=== PATIENT | female | born 1965 | race Caucasian/White ===

== ENCOUNTER 2022-03-31 13:35 | Outpatient (REF) | payer BC, SELFPAY ==
[2022-03-31 15:28] LABS: Alanine Aminotransferase 31 U/L (0-31); Albumin Level 4.2 g/dL (3.5-5.0); Alkaline Phosphatase 93 U/L (39-117); Anion Gap 17 (12-20); Aspartate Amino Transferase 25 U/L (5-31); Bilirubin Total 0.3 mg/dL (0.0-1.0); Blood Urea Nitrogen 19 mg/dL (9-16); Calcium 9.4 mg/dL (8.4-10.2); Carbon Dioxide 22 mmol/L (22-29); Chloride 107 mmol/L (96-108); Estimated Glomerular Filt Rate > 60; Glucose Random 86 mg/dL (60-115); Lipase 41 U/L (8-78); Potassium 3.9 mmol/L (3.3-5.1); Sodium 142 mmol/L (135-145); Total Protein 6.9 g/dL (6.5-8.0)
[2022-03-31 15:29] LABS: TSH reflex Free T4 0.46 uIU/mL (0.32-4.0)
[2022-04-05 13:55] LABS: Transglutaminase Ab IgG <1.0 U/mL; Transglutaminase IgA <1.0 U/mL
== END 2022-03-31 13:36 | disposition home or self-care (01) ==
LOC: HO.LAB 13:35
PROVIDERS: PCP Internal Medicine; Visit Provider Nurse Practitioner Family
DX: R10.9 Unspecified abdominal pain (principal); K59.00 Constipation, unspecified; K21.9 Gastro-esophageal reflux disease without esophagitis
CPT/HCPCS: 36415; 80053; 83690; 84443; 86364

== ENCOUNTER 2023-04-16 13:45 | Outpatient (AMB) | payer BC, SELFPAY ==
--- NOTE | 2023-04-16 14:05 | A.OFFPC_ITS ---
Vital Signs 04/16/23 14:09 Height 5 ft 3 in Weight 137 lb BMI 24.3 BP 128/66 Blood Pressure Location Rt brachial Position Sitting Pulse 79 Pulse Source Pulse Oximeter Pulse Oximetry (%) 98 Oxygen Delivery Method Room Air Intake Visit Reasons: Stomach Pain/Diarrhea Intake Note: Pt is here today for a sick visit, Pt c/o abdominal pain watery stool. Pt states that it has been going on for over 2 weeks. Allergies No Known Allergies Allergy (Verified 04/16/23 14:11) Medication List - Last Reconciled 04/16/23 by Elva Molina MD No Known Home Meds Tobacco use date assessed: 04/16/23 Dental Screening Dental Screen Date: 04/16/23 Did you have a dental visit in the last 12 months?: Yes Did you have a dental problem in the last 6 months where you did not have access to dental care?: No Was dental information given to patient?: Patient has dentist HPI Stomach Pain/Diarrhea HPI Details Pt c/o epigastric abd pain for 2 weeks, constipation on and off, not related to diet. Patient denies nausea vomiting hematochezia melena. she has been drinking 4-6 beers a day, and getting shakes when trying to cut down. Patient is looking for the program to help her quit drinking. [facility] Medical History (Updated 04/16/23 @ 14:25 by Elva Molina MD) Hx of mammogram Normal pelvic exam Varicose veins of both lower extremities Chronic pain of left lower extremity Anxiety Annual physical exam Varicosities of leg Bravo's neuroma of right foot H/O ETOH abuse Surgical History (Updated 03/31/22 @ 13:03 by Elsa Milner CCM) H/O foot surgery H/O colonoscopy Family History (Updated 04/16/23 @ 14:13 by Genoveva Dinero [facility]) Mother Substance use disorder Father No problems noted. Maternal Aunt Cancer of uterus Social History Housing: House Alcohol intake: current Alcohol intake frequency: 0-2 drinks per day Patient Tobacco Use Status: Current everyday Tobacco user Tobacco use type: Cigarette Cigarettes Per Day: 7 e-Cigarette/Vaping Use: Never Used Current occupational status: employed Cognitive needs: No Hearing needs: No Vision needs: No Questionnaire AUDIT C Alcohol Use Questionnaire (AUDIT-C) 1. How often do you have a drink containing alcohol?: 4 or more times a week 2. How many drinks containing alcohol do you have on a typical day when you are drinking?: 7 to 9 3. How often do you have six or more drinks on one occasion?: Daily or almost daily Total Score: 11 Review of Systems Const All systems reviewed & are unremarkable except as noted in HPI and below Reports no additional complaints Eyes Reports no additional complaints ENT Reports no additional complaints Card Reports no additional complaints Resp Reports no additional complaints GI Reports no additional complaints Reports no additional complaints Physical exam (Primary Care) Vital Signs: Last Vital Signs Pulse 79 04/16/23 14:09 BP 128/66 04/16/23 14:09 Pulse Ox 98 04/16/23 14:09 Oxygen Delivery Method Room Air 04/16/23 14:09 BMI result Body Mass Index 24.3 Tobacco/Smoking Status: Tobacco use Status Tobacco use date assessed 04/16/23 04/16/23 14:13 Patient Tobacco Use Status Current everyday Tobacco 04/16/23 14:05 Tobacco use type Cigarette 04/16/23 14:13 e-Cigarette/Vaping Use Never Used 04/16/23 14:05 Const General: no acute distress Resp Effort & Inspection: normal respiratory effort Auscultation: clear to auscultation bilaterally Cardio Rhythm: regular rhythm Heart sounds: S1 normal heart sound present and S2 normal heart sound present GI Other: Epigastric tenderness . no rebound or guarding Inspection: Yes normal to inspection Palpation (GI): Soft to palpation Assessment and Plan Assessment & Plan (1) RUQ abdominal pain: Code(s): R10.11 - Right upper quadrant pain Plan: check labs, abd US to r/o cholecystitis, try Omeprazole. If symptoms persist refer to GI (2) H/O ETOH abuse: Code(s): F10.11 - Alcohol abuse, in remission Plan: QUITTING ALCOHOL DISCUSSED WITH THE PATIENT. She will check with her insurance company for any outpatient detox services Orders: Orders Complete Blood Count Auto Diff Today F10.11 - Alcohol abuse, in remission, R10.11 - Right upper quadrant pain Lipase Today F10.11 - Alcohol abuse, in remission, R10.11 - Right upper quadrant pain US abdomen complete Today F10.11 - Alcohol abuse, in remission, R10.11 - Right upper quadrant pain Comprehensive Met. Panel Today F10.11 - Alcohol abuse, in remission, R10.11 - Right upper quadrant pain H pylori Ag Stool Today F10.11 - Alcohol abuse, in remission, R10.11 - Right upper quadrant pain Medications: New omeprazole 20 mg PO DAILY 90 caps 0RF omeprazole 20 mg PO DAILY 90 caps 0RF Coding Level of Care Code Est Pt Level 3 (39045) Diagnoses RUQ abdominal pain R10.11 H/O ETOH abuse F10.11
[2023-04-16 14:09] VITALS: BP 128/66; PULSE 79; O2SAT 98; BMI 24.3
== END 2023-04-16 14:35 | disposition home or self-care (01) ==
PROVIDERS: PCP Internal Medicine; Visit Provider Internal Medicine
DX: R10.11 Right upper quadrant pain (principal); F10.11 Alcohol abuse, in remission
CPT/HCPCS: 99213

== ENCOUNTER 2023-04-16 14:28 | Outpatient (REF) | payer BC, SELFPAY ==
[2023-04-16 16:06] LABS: MANUAL DIFF FLAG NO
[2023-04-16 16:24] LABS: Basophils Absolute Auto 0.1 X10*3/uL (0.0-0.2); Basophils Percent Auto 0.9 % (0-2); Eosinophils Absolute Auto 0.1 X10*3/uL (0.0-0.4); Eosinophils Percent Auto 0.5 % (0-4); Hemoglobin 14.6 g/dl (12.0-16.0); Imm Gran Abs Auto 0.02 X10*3/uL (0.00-0.03); Imm Gran Pct Auto 0.2 % (0.0-0.4); Lymphocytes Absolute Auto 2.4 X10*3/uL (1.2-4.9); Lymphocytes Percent Auto 21.5 % (20-40); Mean Corpuscular Hemoglobin 33.2 pg (27.0-33.0); Mean Corpuscular Volume 97.7 fL (80.0-98.0); Mean Platelet Volume 9.5 fL (9.4-12.3); Monocytes Absolute Auto 0.9 X10*3/uL (0.1-1.2); Monocytes Percent Auto 7.9 % (2-11); Neutrophils Absolute Auto 7.7 x10*3/uL (2.0-8.3); Platelet Count 312 X10*3/uL (160-400); Red Cell Distribution Width 12.3 % (11.0-16.0); White Blood Count 11.2 X10*3/uL (4.8-10.8)
[2023-04-16 16:36] LABS: Alanine Aminotransferase 35 U/L (0-31); Albumin Level 4.2 g/dL (3.5-5.0); Alkaline Phosphatase 86 U/L (39-117); Anion Gap 15 (12-20); Aspartate Amino Transferase 33 U/L (5-31); Bilirubin Total 0.7 mg/dL (0.0-1.0); Blood Urea Nitrogen 13 mg/dL (9-16); Calcium 9.5 mg/dL (8.4-10.2); Carbon Dioxide 24 mmol/L (22-29); Chloride 103 mmol/L (96-108); Estimated Glomerular Filt Rate > 60; Glucose Random 89 mg/dL (60-115); Lipase 19 U/L (8-78); Potassium 3.8 mmol/L (3.3-5.1); Sodium 138 mmol/L (135-145); Total Protein 7.3 g/dL (6.5-8.0)
== END 2023-04-16 14:29 | disposition home or self-care (01) ==
LOC: HO.HMGCLDS 14:28
PROVIDERS: PCP Internal Medicine; Visit Provider Internal Medicine
DX: R10.11 Right upper quadrant pain (principal); F10.11 Alcohol abuse, in remission
CPT/HCPCS: 36415; 80053; 83690; 85025

== ENCOUNTER 2023-04-19 07:35 | Outpatient (REF) | payer BC, SELFPAY | END 2023-04-19 07:36 | disposition home or self-care (01) | LOC: HO.HMGCLNP 07:35 | PROVIDERS: PCP Internal Medicine; Visit Provider Internal Medicine | DX: R10.11 Right upper quadrant pain (principal); F10.11 Alcohol abuse, in remission | CPT/HCPCS: 87338 ==

== ENCOUNTER 2023-04-19 09:05 | Outpatient (REF) | payer BC, SELFPAY ==
--- NOTE | ~2023-04-19 | US_ITS ---
EXAMINATION: US ABDOMEN LIMITED CLINICAL INFORMATION: Right upper quadrant pain. COMPARISON: None available. TECHNIQUE: Real-time imaging of the right upper quadrant abdominal viscera. FINDINGS: PANCREAS: Normal head and body, the tail is obscured by bowel gas. LIVER: The liver is normal in size. The liver contour is normal. There is diffuse increased liver parenchymal echogenicity, consistent with hepatic steatosis. No focal hepatic lesion. There is no intrahepatic biliary duct dilatation seen. GALLBLADDER: Normal. The gallbladder is physiologically distended without evidence of stones, sludge, polyps, wall thickening or pericholecystic fluid. COMMON BILE DUCT: Normal in caliber measuring 0.2 cm in diameter. RIGHT KIDNEY: Normal. No hydronephrosis. No renal calculi. 0.5 x 0.5 x 0.5 cm echogenic focus in the cortex of the mid kidney may represent an angiomyolipoma. The kidney measures 10.0 cm in maximum dimension. FREE FLUID: None. US/US abdomen limited IMPRESSION: 1. Hepatic steatosis. 2. 0.5 cm echogenic focus in the cortex of the mid right kidney may represent an angiomyolipoma. Follow-up Limited abdominal ultrasound could be performed to confirm stability of this finding.
== END 2023-04-19 09:06 | disposition home or self-care (01) ==
LOC: HO.HMGCX 09:05
PROVIDERS: PCP Internal Medicine; Visit Provider Internal Medicine
DX: R10.11 Right upper quadrant pain (principal); F10.11 Alcohol abuse, in remission
CPT/HCPCS: 76705

== ENCOUNTER 2023-10-01 08:47 | Outpatient (AMB) | payer BC, SELFPAY ==
[2023-10-01 09:03] VITALS: BP 120/62; PULSE 83; O2SAT 96; BMI 23.0
--- NOTE | 2023-10-01 09:03 | MHC.PC.OV ---
Vital Signs 10/01/23 09:03 Height 5 ft 3 in Weight 130 lb BMI 23.0 BP 120/62 Blood Pressure Location Rt brachial Position Sitting Pulse 83 Pulse Source Pulse Oximeter Pulse Oximetry (%) 96 Oxygen Delivery Method Room Air Intake Visit Reasons: Medication review Intake Note: Pt is here today for a follow up visit. Allergies No Known Allergies Allergy (Verified 10/01/23 09:08) Medication List - Last Reconciled 10/01/23 by Elva Molina MD naltrexone 50 mg PO DAILY Tobacco use date assessed: 10/01/23 Dental Screening Dental Screen Date: 10/01/23 Did you have a dental visit in the last 12 months?: Yes Did you have a dental problem in the last 6 months where you did not have access to dental care?: No Was dental information given to patient?: Patient has dentist HPI Medication review HPI Details Pt presents for f/u ETOH dependency. She was in an inpatient detox for 28 days and has been sober for 48 days. She was prescribed Naltrexone. Pt has been in [facility] through [facility] attending meeting weekly [facility] Medical History Hx of mammogram Normal pelvic exam Varicose veins of both lower extremities Chronic pain of left lower extremity Anxiety Annual physical exam Varicosities of leg Bravo's neuroma of right foot H/O ETOH abuse Surgical History H/O foot surgery H/O colonoscopy Family History Mother Substance use disorder Father No problems noted. Maternal Aunt Cancer of uterus Social History Housing: House Alcohol intake: current Alcohol intake frequency: 0-2 drinks per day Patient Tobacco Use Status: Current everyday Tobacco user Tobacco use type: Cigarette Cigarettes Per Day: 7 e-Cigarette/Vaping Use: Never Used Current occupational status: employed Cognitive needs: No Hearing needs: No Vision needs: No Questionnaire PHQ-9 Over the last 2 weeks, how often have you been bothered by any of the following problems? 1. Little interest or pleasure in doing things: not at all 2. Feeling down, depressed, or hopeless: not at all 3. Trouble falling or staying asleep, or sleeping too much: several days 4. Feeling tired or having little energy: not at all 5. Poor appetite or overeating: not at all 6. Feeling bad about yourself - or that you are a failure or have let yourself or your family down: not at all 7. Trouble concentrating on things, such as reading the newspaper or watching television: not at all 8. Moving or speaking so slowly that other people could have noticed. Or the opposite - being so fidgety or restless that you have been moving around a lot more than usual: not at all 9. Thoughts that you would be better off or of hurting yourself in some way: not at all Total score: 1 Depression Screening Interpretation: Negative Depression Screening Done: Yes Source: Developed by Drs. Shon Gill, Maggy Fair, Tree Parker and colleagues, with an educational africa from [employer]. Thrive Questionnaire Date Thrive assessed: 10/01/23 I am a: Patient What is your living situation today?: I have a steady place to live Within the past 12 months, did the food you bought not last and you didn't have the money to get more?: Never true Within the past 12 months, did you worry whether your food would run out before you got money to buy more?: Never true Do you have trouble paying for medicines?: No Do you have trouble getting transportation to medical appointments?: No Do you have trouble paying your heating and electricity bill?: No Do you have trouble taking care of your child, family member or friend?: No Do you have trouble with day-to-day activities such as bathing, preparing meals, shopping, managing finances, etc.?: No Are you currently unemployed and looking for a job?: No Are you interested in more education?: No Please select the resources that you would like help with: None Currently or been in a relationship where the following occur: no concerns reported THRIVE Score: 0 AUDIT C Alcohol Use Questionnaire (AUDIT-C) 1. How often do you have a drink containing alcohol?: Never 3. How often do you have six or more drinks on one occasion?: Never Total Score: 0 DOTTIE-7 AMB Questionnaire DOTTIE-7 Date DOTTIE - 7 assessed: 10/01/23 Feeling nervous, anxious, or on edge: 0 = Not at all Not being able to stop or control worryin = Not at all Worrying too much about different things: 0 = Not at all Trouble relaxin = Not at all Being so restless that it is hard to sit still: 0 = Not at all Becoming easily annoyed or irritable: 0 = Not at all Feeling afraid as if something awful might happen: 0 = Not at all Total DOTTIE-7 score (0-4 normal; 5-9 mild; 10-14 moderate; 15-21 severe): 0 Source: Developed by Drs. Shon Gill, Maggy Fair, Tree Parker and colleagues, with an educational africa from [employer]. Review of Systems Const All systems reviewed & are unremarkable except as noted in HPI and below Reports no additional complaints Eyes Reports no additional complaints ENT Reports no additional complaints Card Reports no additional complaints Resp Reports no additional complaints GI Reports no additional complaints Reports no additional complaints Physical exam (Primary Care) Vital Signs: Last Vital Signs Pulse 83 10/01/23 09:03 BP 120/62 10/01/23 09:03 Pulse Ox 96 10/01/23 09:03 Oxygen Delivery Method Room Air 10/01/23 09:03 BMI result Body Mass Index 23.0 Tobacco/Smoking Status: Tobacco use Status Tobacco use date assessed 10/01/23 10/01/23 09:12 Patient Tobacco Use Status Current everyday Tobacco 10/01/23 09:03 Tobacco use type Cigarette 10/01/23 09:03 e-Cigarette/Vaping Use Never Used 10/01/23 09:03 PHQ-9: PHQ-9 Score PHQ-9: Total score 1 10/01/23 09:50 Depression Screening Interpretation: Negative Thrive Assessment: Date of Thrive Assessment Date Thrive assessed 10/01/23 10/01/23 09:50 Currently or been in a relationship where the following occur: no concerns reported Const General: no acute distress HENMT Head: Yes normal to inspection Ears: hearing grossly normal bilaterally Face and sinus: Yes normal facial exam Mouth: Normal oral and palatal mucosa present Throat: Yes posterior oropharynx normal Eyes General: appearance normal, both eyes and all related structures Neck Neck: Yes no lymphadenopathy and Yes supple Resp Effort & Inspection: normal respiratory effort Auscultation: clear to auscultation bilaterally Cardio Rhythm: regular rhythm Heart sounds: S1 normal heart sound present and S2 normal heart sound present GI Inspection: Yes normal to inspection Palpation (GI): Soft to palpation Percussion: Yes normal to percussion Auscultation: normal bowel sounds Assessment and Plan Assessment & Plan (1) Annual physical exam: Code(s): Z00.00 - Encounter for general adult medical examination without abnormal findings Plan: pt will return for PE (2) H/O ETOH abuse: Code(s): F10.11 - Alcohol abuse, in remission Plan: cont current f/u Orders: Orders Complete Blood Count Auto Diff Today Z00.00 - Encounter for general adult medical examination without abnormal findings UA w Microscopic Today Z00.00 - Encounter for general adult medical examination without abnormal findings Comprehensive [place]. Panel Fast Today Z00.00 - Encounter for general adult medical examination without abnormal findings Lipid Panel Today Z00.00 - Encounter for general adult medical examination without abnormal findings TSH reflex Free T4 Today Z00.00 - Encounter for general adult medical examination without abnormal findings Vitamin D 25-OH Total Today Z00.00 - Encounter for general adult medical examination without abnormal findings Coding Level of Care Code Est Pt Level 3 (85458) Diagnoses Annual physical exam Z00.00 H/O ETOH abuse F10.11
== END 2023-10-01 12:09 | disposition home or self-care (01) ==
PROVIDERS: PCP Internal Medicine; Visit Provider Internal Medicine
DX: F10.11 Alcohol abuse, in remission (principal)
CPT/HCPCS: 99213

== ENCOUNTER 2023-11-02 11:12 | Outpatient (AMB) | payer BC, SELFPAY ==
--- NOTE | 2023-11-02 11:20 | A.OFFPC_ITS ---
Vital Signs 11/02/23 11:21 Height 5 ft 3 in Weight 135 lb BMI 23.9 BP 114/60 Blood Pressure Location Lt brachial Position Sitting Pulse 83 Pulse Source Pulse Oximeter Pulse Oximetry (%) 98 Oxygen Delivery Method Room Air Intake Visit Reasons: Visit Intake Note: Pt is here today for a follow up visit. Allergies No Known Allergies Allergy (Verified 11/02/23 11:24) Medication List - Last Reconciled 11/02/23 by Elva Molina MD naltrexone 50 mg PO DAILY Tobacco use date assessed: 10/01/23 Dental Screening Dental Screen Date: 10/01/23 [facility] Medical History (Updated 11/02/23 @ 12:24 by Elva Molina MD) Hx of mammogram Normal pelvic exam Varicose veins of both lower extremities Chronic pain of left lower extremity Anxiety Annual physical exam Varicosities of leg Bravo's neuroma of right foot H/O ETOH abuse Surgical History H/O foot surgery H/O colonoscopy Family History Mother Substance use disorder Father No problems noted. Maternal Aunt Cancer of uterus Social History Housing: House Alcohol intake: current Alcohol intake frequency: 0-2 drinks per day Patient Tobacco Use Status: Current everyday Tobacco user Tobacco use type: Cigarette Cigarettes Per Day: 7 e-Cigarette/Vaping Use: Never Used service: No Current occupational status: employed Cognitive needs: No Hearing needs: No Vision needs: No Questionnaire Thrive Questionnaire Date Thrive assessed: 10/01/23 DOTTIE-7 AMB Questionnaire DOTTIE-7 Date DOTTIE - 7 assessed: 10/01/23 Source: Developed by Drs. Shon Gill, Maggy Fair, Tree Parker and colleagues, with an educational africa from [employer]. Review of Systems Const All systems reviewed & are unremarkable except as noted in HPI and below Reports no additional complaints Eyes Reports no additional complaints ENT Reports no additional complaints Card Reports no additional complaints Resp Reports no additional complaints GI Reports no additional complaints Reports no additional complaints Physical exam (Primary Care) Vital Signs: Last Vital Signs Pulse 83 11/02/23 11:21 BP 114/60 11/02/23 11:21 Pulse Ox 98 11/02/23 11:21 Oxygen Delivery Method Room Air 11/02/23 11:21 BMI result Body Mass Index 23.9 Tobacco/Smoking Status: Tobacco use Status Tobacco use date assessed 10/01/23 11/02/23 11:24 Patient Tobacco Use Status Current everyday Tobacco 11/02/23 11:24 Tobacco use type Cigarette 11/02/23 11:24 e-Cigarette/Vaping Use Never Used 11/02/23 11:24 Thrive Assessment: Date of Thrive Assessment Date Thrive assessed 10/01/23 11/02/23 11:24 Const General: no acute distress HENMT Head: Yes normal to inspection Ears: hearing grossly normal bilaterally Face and sinus: Yes normal facial exam Mouth: Normal oral and palatal mucosa present Eyes General: appearance normal, both eyes and all related structures Neck Neck: Yes no lymphadenopathy and Yes supple Resp Effort & Inspection: normal respiratory effort Auscultation: clear to auscultation bilaterally Cardio Rhythm: regular rhythm Heart sounds: S1 normal heart sound present and S2 normal heart sound present GI Inspection: Yes normal to inspection Palpation (GI): Soft to palpation Percussion: Yes normal to percussion Auscultation: normal bowel sounds External Female Exam: normal external appearance Speculum Exam - Vagina: normal appearance of the vagina Speculum Exam - Cervix: normal appearance of the cervix Bimanual exam- vagina & uterus: normal bimanual exam Assessment and Plan Assessment & Plan (1) Annual physical exam: Code(s): Z00.00 - Encounter for general adult medical examination without abnormal findings Plan: Well-balanced diet regular exercise discussed with the patient Pap smear was done today. Patient is up-to-date with mammogram and Cologuard was ordered she declined colonoscopy. Orders: Orders Pap Smear Today Z00.00 - Encounter for general adult medical examination without abnormal findings Referrals Cologuard Test Z12.11 - Encounter for screening for malignant neoplasm of colon, Z12.12 - Encounter for screening for malignant neoplasm of rectum Coding Level of Care Code Est Pt Prev Care 40-64y(80411) Diagnoses Annual physical exam Z00.00
[2023-11-02 11:21] VITALS: BP 114/60; PULSE 83; O2SAT 98; BMI 23.9
== END 2023-11-02 12:26 | disposition home or self-care (01) ==
PROVIDERS: PCP Internal Medicine; Visit Provider Internal Medicine
DX: Z00.00 Encounter for general adult medical examination without abnormal findings (principal)
CPT/HCPCS: 99396

== ENCOUNTER 2023-11-02 12:32 | Outpatient (REF) | payer BC, SELFPAY ==
[2023-11-08 03:37] LABS: HPV mRNA E6/E7 Not Detected (Not Detected)
== END 2023-11-02 12:33 | disposition home or self-care (01) ==
LOC: HO.LNP 12:32
PROVIDERS: Visit Provider Internal Medicine
DX: Z00.00 Encounter for general adult medical examination without abnormal findings (principal)
CPT/HCPCS: 87624; 88142

== ENCOUNTER 2023-12-28 13:10 | Outpatient (REF) | payer BC, SELFPAY ==
--- NOTE | ~2023-12-28 | US_ITS ---
EXAMINATION: US PELVIS CLINICAL INFORMATION: Endometrial hyperplasia; postmenopausal patient. COMPARISON: None available. TECHNIQUE: Ultrasound of the pelvis is performed using both transabdominal and transvaginal transducers along with Doppler. Transvaginal imaging is performed due to inadequate visualization transabdominally. FINDINGS: The uterus is of normal size and echogenicity, measuring 4.2 x 2.4 x 2.3 cm. The uterus is anteverted and anteflexed. A regular homogeneous endometrium is identified measuring 0.6 cm.): (3) within the endometrial canal The right ovary is normal in size and echotexture, measuring 1.9 x 0.8 x 1.6 cm for a volume of 1.3 mL. The left ovary is nonvisualized. There is no pelvic free fluid. No adnexal mass is seen. US/US pelvic and transvaginal IMPRESSION: 1. There is a small amount of nonspecific free fluid within the endometrial canal. 2. The left ovary is not visualized.
== END 2023-12-28 13:11 | disposition home or self-care (01) ==
LOC: HO.HMGCX 13:10
PROVIDERS: PCP Internal Medicine; Visit Provider Internal Medicine
DX: N85.00 Endometrial hyperplasia, unspecified (principal)
CPT/HCPCS: 76830; 76856

== ENCOUNTER 2024-11-21 12:57 | Outpatient (AMB) | payer BC, SELFPAY ==
--- OUTSIDE RECORDS SUMMARY | 2024-11-21 12:59 | XMS_ITS | Clinical Summary ---
Author Organization [facility] Address [address] [place] [address] Care Team Providers Care Armed Custom Protection Officer Name Role Phone Unavailable Primary Care Provider Unavailabl e Social History Tobacco Use Types Packs/Day Years Used Date Smoking Tobacco: Never Assessed Comments Unknown Sex and Gender Information Value Date Recorded Sex Assigned at Not on file Legal Sex Female 1:46 AM EST Gender Identity Not on file Sexual Orientation Not on file Plan of Treatment Health Maintenance Due Date Last Done Comments DTaP,Tdap,and Td Vaccines (1 - Tdap) 1984 Hepatitis B Vaccines (1 of 3 - 19+ 3-dose series) 1984 Cervical Cancer Screening: P ap Smear 1986 Pneumococcal Vaccine: 50+ Years (1 of 1 - PCV) 2015 Zoster Vaccines (1 of 2) 2015 Colorectal Cancer Screening: Colonoscopy 06/04/2022 Depression Screening 06/04/2022 HIV Screening 06/04/2022 Hepatitis C Screening 06/04/2022 Social Influencers of Health Screening 06/04/2022 COVID-19 Vaccine ( - 2023-2 5 season) 2024 Influenza Vaccine (Season Ended) 2025 Breast Cancer Screening 06/28/2025 06/28/20, 01/18/2022, 11/26/2020 RSV Immunization Adult Patients (1 - 1-dose 75+ series) 2040 HIB Vaccines Aged Out No longer eligi ble based on patient's age to complete this topic HPV Vaccines Aged Out No longer eligi ble based on patient's age to complete this topic Hepatitis A Vaccines Aged Out No long er eligible based on patient's age to complete this topic IPV Vaccines Aged Out No longer eligi ble based on patient's age to complete this topic MMR Vaccines Aged Out No longer eligi ble based on patient's age to complete this topic Meningococcal ACWY Vaccine Aged Out N o longer eligible based on patient's age to complete this topic Meningococcal B Vaccine Aged Out No l onger eligible based on patient's age to complete this topic Pneumococcal Vaccine: Pediatrics (0 to 5 Years) and At-Risk Patients (6 to 64 Years) Aged Out No longer eligible b ased on patient's age to complete this topic RSV Immunization Patients Under 20 months Aged Out No longer eligible b ased on patient's age to complete this topic Varicella Vaccines Aged Out No longer eligible based on patient's age to complete this topic Procedures Procedure Name Priority Date/Time Associated Diagnosis Comments [facility] SCREENING DIGITAL Routine 06/28/2023 11:07 AM EST Encounter for screening mammogram for malignant neoplasm of breast from Last 3 Months or Most Recently Relevant to Health Maintenance Results * [facility] SCREEN[facility] (06/28/2023 11:07 AM EST) Anatomical Region Laterality Modality Mammography 06/27/2023 1:27 PM EST Narrative 06/28/2023 11:07 AM EST [facility] Diagnostic Imaging Department [address] [place] [address] Patient: ??VELMA DAVID ?/Age/Sex: 1965 - 58 - F Unit#: ??[id number] ? Location/Status: ??SPDIMAM/REG CLI ? Mnemonic/Ordering Site: ??DIGSC/SPMAM Ordering Physician: ??MG MOLINA MD [facility] Screening Digital - 06/27/23 - 1631 Report Status:Signed EXAM: [facility] Screening Digital EXAM DATE AND TIME: 06/27/2023 4:31 PM HISTORY: ??Screening. COMPARISON: ??01/18/22, 11/18/20, 10/30/14 TECHNIQUE: Bilateral digital breast tomosynthesis was performed in the CC and MLO projections. Computer aided detection with Reframed[employer]tv 3D 3.1 was employed. TISSUE DENSITY: b. There are scattered areas of fibroglandular density. FINDINGS: No suspicious masses, grouped microcalcifications, or areas of architectural distortion are seen. The skin and vascularity are unremarkable. IMPRESSION: Stable mammographic appearance of the breasts. ??No evidence of malignancy is seen. A negative mammogram in the presence of a clinically suspicious palpable abnormality does not preclude the possibility of malignancy or alter the indications for biopsy. BI-RADS: ??Category 1: Negative RECOMMENDATION(S): 1: Routine screening mammogram BILATERAL in 1 year. Dictating Physician: ??LISA ARMENTA MD Electronically Signed by: ??LISA ARMENTA MD Dic Date/Time: ??06/28/231106 Sign date/Time: ??06/28/231106 Procedure Note Lisa Armenta MD - 08/07/2023 [facility] Diagnostic Imaging Department [address] [place] [address] Patient: VELMA DAVID/Age/Sex: 1965 - 58 - F Unit#: [id number] Location/Status: SPDIMAM/REG CLI Mnemonic/Ordering Site: DIGSC/SPMAM Ordering Physician: MG MOLINA MD [facility] Screening Digital - 06/27/23 - 1631 Report Status:Signed EXAM: [facility] Screening Digital EXAM DATE AND TIME: 06/27/2023 4:31 PM HISTORY: Screening. COMPARISON: 01/18/22, 11/18/20, 10/30/14 TECHNIQUE: Bilateral digital breast tomosynthesis was performed in the CCand MLO projections. Computer aided detection with Reframed[employer]tv 3D 3.1was employed. TISSUE DENSITY: b. There are scattered areas of fibroglandular density. FINDINGS: No suspicious masses, grouped microcalcifications, or areas ofarchitectural distortion are seen. The skin and vascularity are unremarkable. IMPRESSION: Stable mammographic appearance of the breasts. No evidence of malignancyis seen. A negative mammogram in the presence of a clinically suspicious palpable abnormality does not preclude the possibility of malignancy or alter the indications for biopsy. BI-RADS: Category 1: Negative RECOMMENDATION(S): 1: Routine screening mammogram BILATERAL in 1 year. Dictating Physician: LISA ARMENTA MD Electronically Signed by: LISA ARMENTA MD Dic Date/Time: 06/28/231106 Sign date/Time: 06/28/231106 Mg Molina MD IMG BI PROCEDURES Final Result from Last 3 Months or Most Recently Relevant to Health Maintenance
--- NOTE | 2024-11-21 13:28 | A.OFFPC_ITS ---
Vital Signs 11/21/24 13:35 Height 5 ft 3 in Weight 149 lb BMI 26.4 BP 124/62 Blood Pressure Location Lt brachial Position Sitting Respiration 20 Pulse 74 Pulse Source Pulse Oximeter Temp 98.2 F Temp Source Oral Pulse Oximetry (%) 93 Oxygen Delivery Method Room Air Intake Visit Reasons: Annual PE Intake Note: Pt is here today for her PE Allergies No Known Allergies Allergy (Verified 11/21/24 13:28) Medication List - Last Reconciled 11/21/24 by Elva Molina MD No Known Home Meds Tobacco use date assessed: 11/21/24 Dental Screening Dental Screen Date: 11/21/24 Did you have a dental visit in the last 12 months?: No Did you have a dental problem in the last 6 months where you did not have access to dental care?: No Was dental information given to patient?: Patient has dentist HPI Annual PE HPI Details Patient presents for physical. She complains of chronic right hand pain tingling and numbness sensation worse at night for the last few months. 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 [facility] Medical History (Updated 11/21/24 @ 13:51 by Elva Molina MD) Hx of mammogram Normal pelvic exam Varicose veins of both lower extremities Chronic pain of left lower extremity Anxiety Annual physical exam Varicosities of leg Bravo's neuroma of right foot H/O ETOH abuse Surgical History H/O foot surgery H/O colonoscopy Family History Mother Substance use disorder Father No problems noted. Maternal Aunt Cancer of uterus Social History Housing: House Alcohol intake: current Alcohol intake frequency: 0-2 drinks per day Patient Tobacco Use Status: Former Tobacco user Tobacco use type: Cigarette Cigarettes Per Day: 7 e-Cigarette/Vaping Use: Currently Using service: No Current occupational status: employed Cognitive needs: No Hearing needs: No Vision needs: No Questionnaire PHQ-9 Over the last 2 weeks, how often have you been bothered by any of the following problems? 1. Little interest or pleasure in doing things: not at all 2. Feeling down, depressed, or hopeless: not at all 3. Trouble falling or staying asleep, or sleeping too much: not at all 4. Feeling tired or having little energy: not at all 5. Poor appetite or overeating: not at all 6. Feeling bad about yourself - or that you are a failure or have let yourself or your family down: not at all 7. Trouble concentrating on things, such as reading the newspaper or watching television: not at all 8. Moving or speaking so slowly that other people could have noticed. Or the opposite - being so fidgety or restless that you have been moving around a lot more than usual: not at all 9. Thoughts that you would be better off or of hurting yourself in some way: not at all Total score: 0 Depression Screening Interpretation: Negative Depression Screening Done: Yes 94803 - PHQ-9 Billing: Yes Source: Developed by Drs. Shon Gill, Maggy Fair, Tree Parker and colleagues, with an educational africa from [employer]. Thrive Questionnaire Date Thrive assessed: 11/14/24 I am a: Patient What is your living situation today?: I have a steady place to live Within the past 12 months, did the food you bought not last and you didn't have the money to get more?: Never true Within the past 12 months, did you worry whether your food would run out before you got money to buy more?: Never true Do you have trouble paying for medicines?: No Do you have trouble getting transportation to medical appointments?: No Do you have trouble paying your heating and electricity bill?: No Do you have trouble taking care of your child, family member or friend?: No Do you have trouble with day-to-day activities such as bathing, preparing meals, shopping, managing finances, etc.?: No Are you currently unemployed and looking for a job?: No Are you interested in more education?: No Please select the resources that you would like help with: None Currently or been in a relationship where the following occur: No concerns reported THRIVE Score: 0 AUDIT C Alcohol Use Questionnaire (AUDIT-C) 1. How often do you have a drink containing alcohol?: Never Total Score: 0 DOTTIE-7 AMB Questionnaire DOTTIE-7 Date DOTTIE - 7 assessed: 11/21/24 Feeling nervous, anxious, or on edge: 0 = Not at all Not being able to stop or control worryin = Not at all Worrying too much about different things: 0 = Not at all Trouble relaxin = Not at all Being so restless that it is hard to sit still: 0 = Not at all Becoming easily annoyed or irritable: 0 = Not at all Feeling afraid as if something awful might happen: 0 = Not at all Total DOTTIE-7 score (0-4 normal; 5-9 mild; 10-14 moderate; 15-21 severe): 0 Source: Developed by Drs. Shon Gill, Maggy Fair, Tree Parker and colleagues, with an educational africa from [employer]. Review of Systems Const All systems reviewed & are unremarkable except as noted in HPI and below Eyes Reports no additional complaints ENT Reports no additional complaints Card Reports no additional complaints Resp Reports no additional complaints GI Reports no additional complaints Reports no additional complaints Physical exam (Primary Care) Vital Signs: Last Vital Signs Temp 98.2 F 11/21/24 13:35 Pulse 74 11/21/24 13:35 Resp 20 11/21/24 13:35 BP 124/62 11/21/24 13:35 Pulse Ox 93 11/21/24 13:35 Oxygen Delivery Method Room Air 11/21/24 13:35 BMI result Body Mass Index 26.4 Tobacco/Smoking Status: Tobacco use Status Tobacco use date assessed 11/21/24 11/21/24 13:29 Patient Tobacco Use Status Former Tobacco user 11/21/24 13:36 Tobacco use type Cigarette 11/21/24 13:29 e-Cigarette/Vaping Use Currently Using 11/21/24 13:36 PHQ-9: PHQ-9 Score PHQ-9: Total score 0 11/21/24 13:36 Depression Screening Interpretation: Negative Thrive Assessment: Date of Thrive Assessment Date Thrive assessed 11/14/24 11/21/24 13:29 Currently or been in a relationship where the following occur: No concerns reported Const General: no acute distress HENMT Head: Yes normal to inspection Ears: TM's normal bilaterally Face and sinus: Yes normal facial exam Mouth: Normal oral and palatal mucosa present Neck Neck: Yes supple Resp Effort & Inspection: normal respiratory effort Auscultation: clear to auscultation bilaterally Cardio Rhythm: regular rhythm Heart sounds: S1 normal heart sound present and S2 normal heart sound present GI Inspection: Yes normal to inspection Palpation (GI): Soft to palpation Percussion: Yes normal to percussion Auscultation: normal bowel sounds Coding Level of Care Code Est Pt Prev Care 40-64y(45831) Diagnoses Annual physical exam Z00.00 Carpal tunnel syndrome of right wrist G56.01 Additional Codes PHQ-9 - 24550 - PHQ-9 Billing: Yes ([id number]) Assessment & Plan Assessment & Plan (1) Annual physical exam: Code(s): Z00.00 - Encounter for general adult medical examination without abnormal findings Category: Medical Plan: Well-balanced diet regular physical activity discussed with the patient she is up-to-date with the mammogram and Pap smear. She will be referred to GI at [facility] for colonoscopy (2) Carpal tunnel syndrome of right wrist: Code(s): G56.01 - Carpal tunnel syndrome, right upper limb Category: Medical Plan: Patient was advised to wear wrist splints and EMG will be obtained to evaluate for carpal tunnel Orders: Orders Comprehensive [place]. Panel Fast Today Z00.00 - Encounter for general adult medical examination without abnormal findings Lipid Panel Today Z00.00 - Encounter for general adult medical examination without abnormal findings TSH reflex Free T4 Today Z00.00 - Encounter for general adult medical examination without abnormal findings NE nerve conduction velocity Today G56.01 - Carpal tunnel syndrome, right upper limb Complete Blood Count Auto Diff Today Z00.00 - Encounter for general adult medical examination without abnormal findings Vitamin D 25-OH Total Today Z00.00 - Encounter for general adult medical examination without abnormal findings NE electromyogram (EMG) Today G56.01 - Carpal tunnel syndrome, right upper limb Referrals Gastroenterology Referral Z00.00 - Encounter for general adult medical examination without abnormal findings
[2024-11-21 13:35] VITALS: BP 124/62; PULSE 74; RESP 20; TEMP 36.8; O2SAT 93; BMI 26.4
== END 2024-11-21 13:59 | disposition home or self-care (01) ==
LOC: HO.HMCC 12:58
PROVIDERS: PCP Internal Medicine; Visit Provider Internal Medicine
DX: Z00.00 Encounter for general adult medical examination without abnormal findings (principal); G56.01 Carpal tunnel syndrome, right upper limb

== ENCOUNTER → 2024-11-21 12:57 | Outpatient (BNVA) | payer BC, SELFPAY | PROVIDERS: PCP Internal Medicine; Visit Provider Internal Medicine | DX: Z00.00 Encounter for general adult medical examination without abnormal findings (principal); G56.01 Carpal tunnel syndrome, right upper limb | CPT/HCPCS: 96127 ==